=== PATIENT | male | born 1965 | race Caucasian/White ===

== ENCOUNTER 2022-08-21 10:58 | Emergency (ER) | payer OTHER, SELFPAY ==
[2022-08-21 11:10] VITALS: BP 178/75; PULSE 74; RESP 18; TEMP 36.6; O2SAT 97; BMI 43.9
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
== END 2022-08-21 16:52 | disposition home or self-care (01) ==
PROVIDERS: Emergency Provider Family Medicine; PCP Family Medicine
DX: S16.1XXA Strain of muscle, fascia and tendon at neck level, initial encounter (principal); V59.40XA Driver of pick-up truck or van injured in collision with unspecified motor vehicles in traffic accident, initial encounter; Y92.411 Interstate highway as the place of occurrence of the external cause; Y93.9 Activity, unspecified; Y99.9 Unspecified external cause status
CPT/HCPCS: 70450; 71045; 72125; 72131; 72141; 72170; 73030; 99284

== ENCOUNTER 2022-11-24 09:47 | Outpatient (CLI) | payer BC, SELFPAY ==
[2022-11-24 13:16] LABS: Albumin* 3.8 g/dL (3.3-5.0); Chloride* 104 mmol/L (96-114)
[2022-11-24 13:17] LABS: Potassium* 4.6 mmol/L (3.6-5.1); Sodium* 136 mmol/L (135-149)
[2022-11-24 13:19] LABS: Alkaline Phosphatase* 147 U/L (40-150); Aspartate Amino Transferase* 64 U/L (12-35); Bilirubin Total* 0.8 mg/dL (0.1-1.5); Blood Urea Nitrogen* 9 mg/dL (7-30); Carbon Dioxide* 26 mmol/L (20-32); Creatinine* 0.7 mg/dL (0.5-1.5); Estimated Glomerular Filt Rate 108 ml/min; Glucose* 344 mg/dL (60-115); Lipase* 1254 U/L (23-300); Total Protein* 6.8 g/dL (6.0-8.3)
[2022-11-24 13:20] LABS: Alanine Aminotransferase* 57 U/L (4-50); Calcium* 8.9 mg/dL (8.4-10.6)
== END 2022-11-24 09:48 | disposition home or self-care (01) ==
PROVIDERS: PCP Family Medicine; Visit Provider Family Medicine
DX: R10.9 Unspecified abdominal pain (principal); I10 Essential (primary) hypertension; E66.9 Obesity, unspecified; Z12.5 Encounter for screening for malignant neoplasm of prostate
CPT/HCPCS: 80053; 83690; 84153

== ENCOUNTER 2022-11-28 10:38 | Outpatient (CLI) | payer BC, SELFPAY ==
[2022-11-28 13:45] LABS: Albumin* 3.6 g/dL (3.3-5.0)
[2022-11-28 13:47] LABS: Cholesterol* 165 mg/dL (90-199); HDL Cholesterol* 41 mg/dL (>=40); LDL Cholesterol Calculated 94 mg/dL (<100); Triglycerides* 150 mg/dL (40-149)
[2022-11-28 13:48] LABS: Alkaline Phosphatase* 130 U/L (40-150); Aspartate Amino Transferase* 58 U/L (12-35); Bilirubin Direct* 0.3 mg/dL (0.0-0.5); Bilirubin Total* 0.8 mg/dL (0.1-1.5); Glucose* 162 mg/dL (60-115); Total Protein* 6.4 g/dL (6.0-8.3)
[2022-11-28 13:49] LABS: Alanine Aminotransferase* 46 U/L (4-50); Lipase* 88 U/L (23-300)
[2022-11-29 23:14] LABS: C-Peptide, Serum or Plasma 4.5 ng/mL (0.5-3.3)
== END 2022-11-28 10:39 | disposition home or self-care (01) ==
PROVIDERS: PCP Family Medicine; Visit Provider Family Medicine
DX: E13.9 Other specified diabetes mellitus without complications (principal); K85.90 Acute pancreatitis without necrosis or infection, unspecified; R10.9 Unspecified abdominal pain; Z13.6 Encounter for screening for cardiovascular disorders
CPT/HCPCS: 80061; 80076; 82947; 83690; 84681

== ENCOUNTER 2023-02-28 08:15 | Outpatient (RCR) | payer OTHER, BC, SELFPAY ==
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
--- NOTE | 2023-02-28 12:40 | PT.OPDN ---
PT [facility] Outpatient Daily Note PT [facility] Outpatient Daily Note Start: 12/18/22 10:11 Freq: Status: Active Protocol: Document 02/28/23 08:23 CJT (Rec: 02/28/23 12:40 CJT [id number]) E-signed By Colin Veliz, PT PT OP Daily Progress Note Visit Information Note Type Daily Note Visit Number [id number] Insurance Authorized Visits 100 - no auth required Physician Authorized Visits eval and treat Insurance Information Recert Due Date 02/16/23 Insurance Name Other; See Comments Insurance Information/Comments Auto Medical Diagnosis M54.2 - Cervicalgia M54.9 - Dorsalgia Treating Diagnosis M54.2 - Cervicalgia M54.9 - Dorsalgia Referring Alex Shaver MD Subjective Subjective Pt missed Sunday as he was driving his to her personal appointment. Hip feeling a little better but is still sore. Feels he has made 50% or less progress in regard to his hip symptoms at this time. Precautions Treatment Precautions/Contraindications 5 kids - ages 28, 27, 25, 20, 20 Home Exercise Home Exercise Comments Hip: [id number] Spine: [id number] Objective Patient Instructed in Risks/Benefits Yes Therapeutic Exercise Therapeutic Exercise Minutes (minutes) 34 Therapeutic Exercise: To Restore Bike - 6 minutes Functional Status Piriformis stretch in hooklying x 60 ea Piriformis stretch in figure-4 x 60 ea Supine HS stretch x 60 Supine trunk rotations x 10 ea TRX Squats 2 x 12 SL leg press 2 x 10 ea, 10# Self SIJ mobilization with/ without belt Manual Therapy Techniques Manual Therapy Minutes (minutes) 8 Manual Therapy Techniques STM in L S/L to R glute med/ min, and piriformis to reduce tissue tension and improve extensibility. Treatment Minutes Timed Code Treatment Minutes 42 Total Treatment Time 42 Billing Units Manual Therapy Units 1 Therapeutic Exercise Units 2 Assessment/Impression Assessment/Impression Nacho has showed fair progress in physical therapy thus far in regard to his neck pain. Nacho's R hip pain remains a primary concern of his and we have made very little progress in resolving his symptoms at this time. Nacho's pain appears to be muscle-related in nature but he denies relief of painful symptoms with stretching, strengthening, massage, heat, and ultrasound. I do feel that it is worth exploring other means of treatment at this time including a cortisone injection to the hip itself or a medrol dose pack to help reduce pain and inflammation in the R hip. I have encouraged Nacho to reach out to Dr. Ball to discuss any pharmaceutical treatment options for his hip pain and he tells me that he will call his office later today. Plan of Care Physical Therapy Goals STG - To be completed in 2-3 weeks: 1. Pt will report reduction in neck and back pain by factor of 2 so that he may work throughout the day without interruptions due to pain. 2. Pt will demo equal cervical lateral flexion and rotation AROM B so that he may look over shoulders while driving to watch for traffic. MET 3. 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 MET LTG - To be completed in 8 weeks: 1. Pt to be I with HEP so that he may I manage progression of symptoms. 2. Pt will report reduction in LUND frequency to 1/week so that he may work throughout the day without interruptions due to head pain as well as work with reduced mental fatigue. 3. Pt will report ability to sleep 6+ hours without waking due to pain so that he may wake well rested with reduced mental fatigue during working hours. 4. Pt will report no increase in his back/neck/shoulder pain with all activities at work so that he may work full hours without increase in his pain. Daily Plan of Care Continue per POC Recertification Information Provider Signature Shows Agreement With POC & Medical Necessity
== END 2023-06-20 15:50 | disposition home or self-care (01) ==
PROVIDERS: PCP Family Medicine; Visit Provider Family Medicine
DX: M54.2 Cervicalgia (principal); M54.9 Dorsalgia, unspecified; Z51.89 Encounter for other specified aftercare
CPT/HCPCS: 97035; 97110; 97140; 97161

== ENCOUNTER 2023-09-10 09:17 | Outpatient (CLI) | payer BC, SELFPAY | END 2023-09-10 09:18 | disposition home or self-care (01) | LOC: LONREF 09:18 | PROVIDERS: PCP Family Medicine; Visit Provider Family Medicine | DX: I10 Essential (primary) hypertension (principal); Z13.6 Encounter for screening for cardiovascular disorders | CPT/HCPCS: 80061 ==

== ENCOUNTER 2024-02-05 14:41 | Outpatient (CLI) | payer BC, SELFPAY | END 2024-02-05 14:42 | disposition home or self-care (01) | PROVIDERS: PCP Family Medicine; Visit Provider Family Medicine | DX: I10 Essential (primary) hypertension (principal); Z13.220 Encounter for screening for lipoid disorders | CPT/HCPCS: 80048; 80061 ==

== ENCOUNTER 2024-11-12 09:49 | Outpatient (CLI) | payer BC, SELFPAY | END 2024-11-12 09:50 | disposition home or self-care (01) | PROVIDERS: PCP Family Medicine; Visit Provider Family Medicine | DX: I10 Essential (primary) hypertension (principal); Z13.220 Encounter for screening for lipoid disorders; Z12.5 Encounter for screening for malignant neoplasm of prostate | CPT/HCPCS: 80048; 80061; G0103 ==

== ENCOUNTER 2025-05-14 10:28 | Outpatient (CLI) | payer BC, SELFPAY ==
--- NOTE | 2025-05-14 11:51 | P.ANES_ITS ---
Anesthesia Charges Start Date/Time Anesthesia Start Date: 05/14/25 Anesthesia Start Time: 11:11 Stop Date/Time Anesthesia Stop Date: 05/14/25 Anesthesia Stop Time: 11:49 Coding CPT Codes CPT Codes: AV LWR INTST NDSC NOS - 91497 ([id number]) P2 - PATIENT W/MILD SYST DISEASE, QK - SERVER SUPPORT TECHNICIAN 2-4 CNCRNT ANES PROC, QX - GOLF COURSE ASSISTANT SVC W/ MD MED DIRECTION
--- NOTE | 2025-05-14 11:51 | W.ANESCHARGE ---
Anesthesia Charges Start Date/Time Anesthesia Start Date: 05/14/25 Anesthesia Start Time: 11:11 Stop Date/Time Anesthesia Stop Date: 05/14/25 Anesthesia Stop Time: 11:49 Coding CPT Codes CPT Codes: AV LWR INTST NDSC NOS - [id number] ([id number]) P2 - PATIENT W/MILD SYST DISEASE, QK - NEWS ASSISTANT 2-4 CNCRNT ANES PROC, QX - SENIOR FRONT END DEVELOPER SVC W/ MD MED DIRECTION
--- NOTE | 2025-05-14 12:27 | P.ANES_ITS ---
Anesthesia Charges Start Date/Time Anesthesia Start Date: 05/14/25 Anesthesia Start Time: 11:11 Stop Date/Time Anesthesia Stop Date: 05/14/25 Anesthesia Stop Time: 11:49 Coding CPT Codes CPT Codes: AV LWR INTST NDSC NOS - [id number] ([id number]) P2 - PATIENT W/MILD SYST DISEASE, QK - ELECTROPLATING LABORER 2-4 CNCRNT ANES PROC, QX - ACID STRENGTH INSPECTOR SVC W/ MD MED DIRECTION
--- NOTE | 2025-05-14 12:27 | W.ANESCHARGE ---
Anesthesia Charges Start Date/Time Anesthesia Start Date: 05/14/25 Anesthesia Start Time: 11:11 Stop Date/Time Anesthesia Stop Date: 05/14/25 Anesthesia Stop Time: 11:49 Coding CPT Codes CPT Codes: AV LWR INTST NDSC NOS - 48220 ([id number]) P2 - PATIENT W/MILD SYST DISEASE, QK - PLATER HOT DIP 2-4 CNCRNT ANES PROC, QX - CRYSTAL ATTACHER SVC W/ MD MED DIRECTION
== END 2025-05-14 10:29 | disposition home or self-care (01) ==
LOC: OP CLINIC 10:29
PROVIDERS: PCP Family Medicine; Visit Provider Surgery
DX: Z12.11 Encounter for screening for malignant neoplasm of colon (principal); D12.3 Benign neoplasm of transverse colon; D12.0 Benign neoplasm of cecum; D12.8 Benign neoplasm of rectum
CPT/HCPCS: 00811; 00812; 45385; 88305; J2704

== ENCOUNTER 2025-09-03 12:33 | Outpatient (CLI) | payer BC, SELFPAY ==
--- NOTE | 2025-09-03 13:00 | CRLHL7_ITS ---
For Patients: As a result of the Century Cures Act, medical imaging exams and procedure reports are released immediately into your electronic medical record. You may view this report before your referring provider. If you have questions, please contact your health care provider. INDICATION: Neck pain. Dizziness TECHNIQUE: Noncontrast sagittal T1, T2, STIR and axial GRE sequences are provided. Compared to prior study from August 21, 2022. FINDINGS: The overall stature, alignment and intrinsic marrow signal of the cervical spine is within normal limits. Cervical cord is normal. C5-6, C6-7: Stable trivial posterior disc bulge effaces the ventral thecal sac but results in no central canal or foraminal narrowing. Remainder of the cervical spine is unremarkable, specifically no evidence of suspicious central canal or foraminal narrowing. IMPRESSION: 1. Stable trivial discogenic degenerative changes at C5-6, C6-7 resulting in no significant central canal or foraminal narrowing. Dictated by Meir Ledezma MD @ 09/04/2025 4:36:38 PM (Electronically Signed)
== END 2025-09-03 12:34 | disposition home or self-care (01) ==
LOC: MRI 12:34
PROVIDERS: PCP Family Medicine; Visit Provider Family Medicine
DX: M54.2 Cervicalgia (principal); R42 Dizziness and giddiness
CPT/HCPCS: 72141

== ENCOUNTER 2025-10-09 10:00 | Outpatient (CLI) | payer BC, SELFPAY ==
--- NOTE | 2025-10-09 10:15 | CRLHL7_ITS ---
For Patients: As a result of the Century Cures Act, medical imaging exams and procedure reports are released immediately into your electronic medical record. You may view this report before your referring provider. If you have questions, please contact your health care provider. CLINICAL HISTORY: Unspecified abdominal pain COMPARISON: none TECHNIQUE: Shannon scale and color Doppler images were acquired of the kidneys and urinary bladder. FINDINGS: Simple circumscribed anechoic right renal cyst measures 3.2 x 2.8 x 3.1 cm. There is no evidence of hydronephrosis, solid mass or calculus. The right kidney measures 10.5cm in length and the left kidney measures 11.8cm in length. The renal cortex appears of normal thickness. Bladder volume 140 cc prevoid and 18 cc postvoid. Color Doppler images reveal a normal appearance of both ureteral jets. Relative prominence of the right posterolateral bladder wall may be present. IMPRESSION: Incidental simple right renal cyst. No hydronephrosis. Possible thickening of the right posterolateral bladder wall. CT urogram recommended. Dictated by Misha Pittman MD @ 10/09/2025 11:54:41 AM (Electronically Signed)
== END 2025-10-09 10:01 | disposition home or self-care (01) ==
LOC: US 10:01
PROVIDERS: PCP Family Medicine; Visit Provider Physician Assistant
DX: R10.9 Unspecified abdominal pain (principal); N28.1 Cyst of kidney, acquired
CPT/HCPCS: 76770

== ENCOUNTER 2025-10-20 08:34 | Outpatient (CLI) | payer BC, SELFPAY ==
--- NOTE | 2025-10-20 09:00 | CRLHL7_ITS ---
For Patients: As a result of the 21st Century Cures Act, medical imaging exams and procedure reports are released immediately into your electronic medical record. You may view this report before your referring provider. If you have questions, please contact your health care provider. INDICATION: HEMATURIA, BLADDER WALL THICKENING AND RENAL CYST SEEN ON US TECHNIQUE: CT abdomen and pelvis urogram without and with 100 cc Isovue 370 IV contrast. Contrast images were obtained in the nephrographic and delayed phases. COMPARISON: January 2021. FINDINGS: Lower chest: The visualized lower lungs are aerated. No pleural or pericardial effusion. ABDOMEN: Liver: Normal enhancement. No focal suspicious hepatic lesions. Gallbladder and biliary: Tiny stones and sludge in an otherwise normal gallbladder. Normal caliber bile ducts. Spleen: Normal size and enhancement. Pancreas: Normal enhancement without peripancreatic inflammatory changes or ductal dilatation. Adrenal glands: Normal adrenal glands. Kidneys and ureters: Normal renal enhancement. No hydroureteronephrosis. No nephrolithiasis. Suboptimal opacification of the renal collecting systems however there are no discrete abnormal areas of urothelial wall thickening or enhancement. Right renal cyst. Subcentimeter hypodensities are too small to characterize however statistically represent cysts. GI tract: Stomach is partially distended with fluid and air. Normal caliber small and large bowel loops. Appendix is not definitively visualized. Colonic diverticulosis without diverticulitis. Vascular structures: Normal caliber abdominal aorta. Lymph nodes: No lymphadenopathy in the abdomen or pelvis by size criteria. Peritoneum: No free air, free fluid, or focal drainable fluid collection. PELVIS: Genitourinary system: Suboptimal opacification and distention of the urinary bladder however there are no discrete large bladder wall masses. Circumferential wall thickening. Normal-sized prostate. SKELETAL STRUCTURES AND SOFT TISSUES: Bilateral SI joint arthrosis. Lumbar spondylosis. L4 limbus vertebrae. IMPRESSION: 1. Normal renal enhancement. No hydroureteronephrosis. No nephrolithiasis. Suboptimal opacification of the renal collecting systems however there are no discrete abnormal areas of urothelial wall thickening or enhancement. Right renal cyst. 2. Suboptimal opacification and distention of the urinary bladder however there are no discrete large bladder wall masses. Circumferential wall thickening which can be seen the setting of cystitis. Please note that all CT scans at this facility use dose modulation, iterative reconstruction, and/or weight-based dosing when appropriate to reduce radiation dose to as low as reasonably achievable. Dictated by Misha Love MD @ 10/23/2025 12:31:28 PM (Electronically Signed)
[2025-10-20 09:05] LABS: Creatinine* 0.9 mg/dL (0.5-1.5); Estimated Glomerular Filt Rate 98 ml/min
== END 2025-10-20 08:35 | disposition home or self-care (01) ==
LOC: CT 08:34
PROVIDERS: PCP Family Medicine; Visit Provider Family Medicine
DX: R31.9 Hematuria, unspecified (principal)
CPT/HCPCS: 36415; 74178; 82565; Q9967